=== PATIENT | male | born 1990 | race Caucasian/White ===

== ENCOUNTER 2017-02-07 13:52 | Emergency (ER) | payer SELFPAY ==
[~2017-02-07] VITALS: Ht 167.6 cm; Wt 59.0 kg
[2017-02-07 14:00] VITALS: BP 138/92
--- NOTE | 2017-02-07 14:49 | RAD ---
PA and lateral chest x-ray without comparison for cough, right-sided chest pain for 4 days. Findings: The lungs are clear. The cardiomediastinum is grossly unremarkable. No significant soft tissue or osseous abnormalities are seen. Impression: 1. No acute cardiopulmonary abnormality.
[2017-02-07] MEDS ORDERED: PRED50TA PO (14:50)
[2017-02-07] MEDS ORDERED: HYDR-971 PO (14:50)
[2017-02-07] MEDS ORDERED: D-ME118S2 PO (14:50)
--- NOTE | 2017-02-07 14:50 | PHYS DOC ---
Past Medical History Past Medical History: No Pertinent History Past Surgical History: No Surgical History Alcohol Use: None Drug Use: None Adult General Chief Complaint Chief Complaint: CHEST WALL PAIN [facility] HPI Patient is a 26 year old female presents emergency room with a complaint of increasing right-sided chest wall pain for the past 4 days with a nonproductive cough. Patient denies any history of heart or lung disease. Patient is a smoker. He denies antibiotic use, hospitalization or foreign travel within the past 90 days. Patient states that the pain is worse when he takes of breath and or rotates his trunk. He states he feels as a gripping sensation stopping him from taking a deep breath in. Patient denies any history of coagulopathies, previous PEs or DVTs. Review of Systems Review of Systems Constitutional: Denies fever or chills [] Eyes: Denies change in visual acuity, redness, or eye pain [] HENT: Denies nasal congestion or sore throat [] Respiratory: Denies cough or shortness of breath [] Cardiovascular: No additional information not addressed in HPI [] GI: Denies abdominal pain, nausea, vomiting, bloody stools or diarrhea [] : Denies dysuria or hematuria [] Musculoskeletal: Denies back pain or joint pain [] Integument: Denies rash or skin lesions [] Neurologic: Denies headache, focal weakness or sensory changes [] Endocrine: Denies polyuria or polydipsia [] Allergies Allergies Allergies Coded Allergies Type Severity Reaction Last Updated Verified No Known Drug Allergies 02/07/17 No Physical Exam Physical Exam Constitutional: Well developed, well nourished, no acute distress, non-toxic appearance. Patient is afebrile. HENT: Normocephalic, atraumatic, bilateral external ears normal, oropharynx moist, no oral exudates, nose normal. [] Eyes: PERRLA, EOMI, conjunctiva normal, no discharge. [] Neck: Normal range of motion, no tenderness, supple, no stridor. [] Cardiovascular:Heart rate 68 with regular rhythm, no murmur Lungs & Thorax: There is no evidence of respiratory distress or respiratory fatigue. There is no sensory muscle use or posturing. Lungs are clear to auscultation bilaterally. Patient does show some cessation of inspiration when he attempts to take deep breaths in. Oxygen saturation is 98% on room air. Abdomen: Bowel sounds normal, soft, no tenderness, no masses, no pulsatile masses. [] Skin: Warm, dry, no erythema, no rash. [] Back: No tenderness, no CVA tenderness. [] Extremities: No tenderness, no cyanosis, no clubbing, ROM intact, no edema. [] Neurologic: Alert and oriented X 3, normal motor function, normal sensory function, no focal deficits noted. [] Psychologic: Affect normal, judgement normal, mood normal. [] Current Patient Data Vital Signs Vital Signs Date Time Temp Pulse Resp B/P Pulse Ox O2 Delivery O2 Flow Rate FiO2 02/07/17 14:00 98.8 74 20 138/92 98 Room Air 98.8 EKG EKG [] Radiology/Procedures Radiology/Procedures PA and lateral chest x-ray are performed with adequate technique. There is no evidence of acute thoracic process such as infiltrate or pneumothorax. Course & Med Decision Making Course & Med Decision Making Pertinent Labs and Imaging studies reviewed. (See chart for details) [] Dragon Disclaimer Dragon Disclaimer This electronic medical record was generated, in whole or in part, using a voice recognition dictation system. Departure Departure Impression: Primary Impression: Pleurisy Disposition: HOME, SELF-CARE Condition: GOOD Referrals: NO PCP (PCP) Patient Instructions: Pleurisy, [id number], Smoking Cessation, Tips For Success, Smoking, You Can Quit, [id number] Additional Instructions: 1. The chest x-ray here today shows no evidence of pneumonia or collapsed lung. Ribs are normal as well. 2. Take the medication as prescribed. 3. Review the discharge instructions provided for self-care and reasons to return to the emergency department. 4. Follow-up with a primary care doctor's office to be seen within the next 5-7 days if no improvement. Scripts Hydrocodone/Apap 5-325 ([place] 5-325 Tablet)1 Each Tablet1 Tab PO PRN Q6HRS PRN PAIN #10 TAB Ref 0 Prov:DELBERT COFFEY 02/07/17 D-Methorphan Hb/Prometh Hcl (Promethazine-Dm Syrup)118 Ml Syrup5 Ml PO PRN Q6HRS COUGH #120 ML Prov:DELBERT COFFEY 02/07/17 Prednisone 50 Mg Tablet1 Tab PO DAILY #5 TAB Prov:DELBERT COFFEY 02/07/17 DELBERT COFFEY Feb 07, 2017 14:50
== END 2017-02-07 14:51 | disposition home or self-care (01) ==
LOC: ER 13:52
DX: R09.1 Pleurisy (principal); F17.200 Nicotine dependence, unspecified, uncomplicated
CPT/HCPCS: 71020; 99284

== ENCOUNTER 2017-06-08 12:08 | Emergency (ER) | payer SELFPAY ==
[~2017-06-08] VITALS: Ht 170.2 cm; Wt 59.0 kg
[~2017-06-08 12:08] MED LIST: D-ME118S2 PO; HYDR-971 PO; PRED50TA PO
[2017-06-08 12:55] VITALS: BP 165/95
[2017-06-08] MEDS ORDERED: FLUT30CR5 TP (13:10)
[2017-06-08] MEDS ORDERED: HYDR25TA PO (13:10)
[2017-06-08] MEDS ORDERED: PRED50TA PO (13:10)
--- NOTE | 2017-06-08 13:10 | PHYS DOC ---
Past Medical History Past Medical History: No Pertinent History Past Surgical History: No Surgical History Smoking: Cigarettes, Greater than 1 pack/day Alcohol Use: None Drug Use: None Adult General Chief Complaint Chief Complaint: SKIN PROBLEM [facility] HPI Is a pleasant 27-year-old male patient who presents with a 2 day history of itchy intense rash on his right upper forearm and his legs bilaterally. He believes he was exposed to poison sravani before this rash began. He denies any fevers, joint pain joint swelling, denies any history of sexually transmitted diseases, denies any headache to take point illness or exposure to tick bites, denies any travel outside the country denies any recent antibiotic use. He has Taken some Benadryl which is reducible the itching. Review of Systems Review of Systems Constitutional: Denies fever or chills [] Eyes: Denies change in visual acuity, redness, or eye pain [] HENT: Denies nasal congestion or sore throat [] Respiratory: Denies cough or shortness of breath [] Cardiovascular: No additional information not addressed in HPI [] GI: Denies abdominal pain, nausea, vomiting, bloody stools or diarrhea [] : Denies dysuria or hematuria [] Musculoskeletal: Denies back pain or joint pain [] Integument: There is definite skin rashes complete well. Neurologic: Denies headache, focal weakness or sensory changes [] Endocrine: Denies polyuria or polydipsia [] Allergies Allergies Allergies Coded Allergies Type Severity Reaction Last Updated Verified No Known Drug Allergies 02/07/17 No Physical Exam Physical Exam Vital signs reviewed and normal. Constitutional: Well developed, well nourished, no acute distress, non-toxic appearance. [] Cardiovascular:Heart rate regular rhythm, no murmur [] Lungs & Thorax: Bilateral breath sounds clear to auscultation [] Skin: Warm, dry, no erythema, rashes linear nature with small vesicles along the forearms Y laterally lower legs bilaterally. There is no sense significant erythema or cellulitis associated with these linear rash signs. There is no Pastia's lines is no central clearing or urticaria. Back: No tenderness, no CVA tenderness. [] Extremities: No tenderness, no cyanosis, no clubbing, ROM intact, no edema. [] Neurologic: Alert and oriented X 3, normal motor function, normal sensory function, no focal deficits noted. [] Psychologic: Affect normal, judgement normal, mood normal. [] EKG EKG [] Radiology/Procedures Radiology/Procedures [] Course & Med Decision Making Course & Med Decision Making Pertinent Labs and Imaging studies reviewed. (See chart for details) patient presents with likely contact dermatitis. He has not had any systemic symptoms of fevers or chills or headache or insect bites. Baudette spotted fever, Lyme Disease, Measles, Mumps, rubella Necrotizing fasciitis toxic shock syndrome, meningococcemia, erythema multiforme , Jarred Kehinde syndrome, TEN , ITP, TTP, HSP, or disseminated gonorrhea soon upon arrival but I believe he is not suffering from these issues. Impression: Contact dermatitis. Disposition: PCP follow-up with short course of prednisone, fluticasone cream and Atarax. [] Dragon Disclaimer Dragon Disclaimer This electronic medical record was generated, in whole or in part, using a voice recognition dictation system. Departure Departure Impression: Primary Impression: Contact dermatitis Disposition: HOME, SELF-CARE Condition: IMPROVED Referrals: NO PCP (PCP) Patient Instructions: Contact Dermatitis Additional Instructions: Is return for any new or increasing symptoms with fever greater than 102.2 giving the joint swelling or pain headache stiff neck or joint pain that requires evaluation. Scripts Prednisone (PREDNISONE) 50 Mg Tablet 1 TAB PO DAILY, #5 TAB Prov: NEAL GARCIA MD 06/08/17 Fluticasone Propionate (CUTIVATE) 30 Gm Cream..g. 1 MARIE TP BID, #60 GM 1 Refill Prov: NEAL GARCIA MD 06/08/17 Hydroxyzine Hcl (HYDROXYZINE HCL) 25 Mg Tablet 1 TAB PO TID, #30 TAB Prov: NEAL GARCIA MD 06/08/17 NEAL GARCIA MD Jun 08, 2017 13:10
== END 2017-06-08 13:10 | disposition home or self-care (01) ==
LOC: ER 12:08
DX: L25.9 Unspecified contact dermatitis, unspecified cause (principal); F17.210 Nicotine dependence, cigarettes, uncomplicated
CPT/HCPCS: 99283

== ENCOUNTER 2017-07-22 17:04 | Emergency (ER) | payer SELFPAY ==
[~2017-07-22] VITALS: Ht 170.2 cm; Wt 59.0 kg
[~2017-07-22 17:04] MED LIST changes: +FLUT30CR5 TP; +HYDR25TA PO
[2017-07-22 17:17] VITALS: BP 154/92
[2017-07-22] MEDS ORDERED: DIPHTH,PERTUSS(ACELL),TET TOX 0.5 ML DISP.SYRIN. VAX IM ONE (17:30)
[2017-07-22] MEDS ORDERED: CEPH500T PO (17:35)
--- NOTE | 2017-07-22 17:35 | PHYS DOC ---
Past Medical History Past Medical History: No Pertinent History Past Surgical History: No Surgical History Alcohol Use: None Drug Use: None Adult General Chief Complaint Chief Complaint: LACERATION/AVULSION HPI HPI Patient is a 27 year old male who presents with left hand laceration. Patient states he got cut yesterday by a barbed wire fence. Review of Systems Review of Systems Constitutional: Denies fever or chills [] Musculoskeletal: Denies back pain or joint pain [] Integument: left hand laceration Neurologic: Denies headache, focal weakness or sensory changes [] Current Medications Current Medications Current Medications Medications (Trade) Dose Ordered Sig/Cristine Start Time Stop Time Status Last Admin Dose Admin Acetaminophen/ Codeine Phosphate (Tylenol #3) 1 tab 1X ONCE 07/22/17 17:30 07/22/17 17:31 UNV Diphtheria/ Tetanus/Acell Pertussis (Boostrix) 0.5 ml ONCE ONCE 07/22/17 17:30 07/22/17 17:31 Allergies Allergies Allergies Coded Allergies Type Severity Reaction Last Updated Verified No Known Drug Allergies 02/07/17 No Physical Exam Physical Exam Constitutional: Well developed, well nourished, no acute distress, non-toxic appearance. [] Skin: Webspace between the ring finger and pinky finger with a laceration approximately 3 cm long. There is no obvious tendon involvement. Full range of motion to the left hand and fingers. Adequate radial medial and ulnar sensation to the left fingers. Cap refill less than 2 seconds the left fingers. Back: No tenderness, no CVA tenderness. [] Extremities: No tenderness, no cyanosis, no clubbing, ROM intact, no edema. [] Neurologic: Alert and oriented X 3, normal motor function, normal sensory function, no focal deficits noted. [] Psychologic: Affect normal, judgement normal, mood normal. [] Current Patient Data Vital Signs Vital Signs Date Time Temp Pulse Resp B/P (MAP) Pulse Ox O2 Delivery O2 Flow Rate FiO2 07/22/17 17:17 98.2 75 16 99 Room Air 98.2 EKG EKG [] Radiology/Procedures Radiology/Procedures [] Course & Med Decision Making Course & Med Decision Making Pertinent Labs and Imaging studies reviewed. (See chart for details) Patient has left hand laceration after being cut in her bladder fence yesterday. Laceration is open more than 24 hours. Patient was informed we will not be able to close the laceration. Laceration will have to heal by secondary intent. Instructed to keep the area clean and dry, recommended Neosporin to the area. Tetanus was updated. I went ahead and put him on cephalexin prophylaxis. Dragon Disclaimer Dragon Disclaimer This electronic medical record was generated, in whole or in part, using a voice recognition dictation system. Departure Departure Impression: Primary Impression: Laceration of left hand Disposition: HOME, SELF-CARE Condition: STABLE Referrals: NO PCP (PCP) Patient Instructions: Laceration Care, Adult Additional Instructions: You were seen with a laceration to the left hand. Keep the area clean and dry. You can shower. Apply Neosporin to the area twice a day. Monitor the area for signs and symptoms of infection including but not limited to increased redness warmth or drainage from the area and return to the ED if they occur. Please complete your antibiotics. Scripts Cephalexin (CEPHALEXIN) 500 Mg Tablet 1 TAB PO QID, #40 TAB Prov: EMILIANA ROQUE APRN 07/22/17 Problem Qualifiers Primary Impression: Laceration of left hand Encounter type: initial encounter Foreign body presence: without foreign body Qualified Codes: S61.412A - Laceration without foreign body of left hand , initial encounter EMILIANA ROQUE APRN Jul 22, 2017 17:35
[2017-07-22] MEDS ORDERED: ACETAMINOPHEN/CODEINE 300/30MG TABLET. PO ONE (17:45)
== END 2017-07-22 17:54 | disposition home or self-care (01) ==
LOC: ER 17:04
DX: S61.412A Laceration without foreign body of left hand, initial encounter (principal); W26.8XXA Contact with other sharp object(s), not elsewhere classified, initial encounter; Y93.89 Activity, other specified; Y92.89 Other specified places as the place of occurrence of the external cause; Y99.8 Other external cause status
CPT/HCPCS: 90471; 90715; 99283-25